=== PATIENT | male | born 1980 | race Two or more races ===

== ENCOUNTER 2019-04-03 21:41 | Emergency (ER) | payer SELFPAY ==
[~2019-04-03] VITALS: Ht 172.7 cm; Wt 82.0 kg
[2019-04-03] MEDS ORDERED: METHYLPREDNISOLONE SOD SUCC 125 MG/2 ML VIAL IV ONE (23:15)
[2019-04-03] MEDS ORDERED: DIPHENHYDRAMINE 50MG/ML VIAL IV ONE (23:15)
[2019-04-03] MEDS ORDERED: EPINEPHRINE 1:1000 1 MG/ML AMP INJ ONE (23:15)
[2019-04-04 01:59] VITALS: BP 100/48
== END 2019-04-04 02:10 | disposition home or self-care (01) ==
LOC: EDBD 21:41 → ER 21:41
DX: T78.1XXA Other adverse food reactions, not elsewhere classified, initial encounter (principal); L27.2 Dermatitis due to ingested food; R05 Cough; R06.02 Shortness of breath; R06.2 Wheezing; X58.XXXA Exposure to other specified factors, initial encounter
CPT/HCPCS: 96372; 96374; 96375; 99283; J1200; J2930; J3490